=== PATIENT | male | born 1950 | race Two or more races ===

== ENCOUNTER 2016-06-09 12:20 | Day surgery (SDC) | payer BC ==
[2016-06-08 14:52] VITALS: BMI 24.9
[~2016-06-09] VITALS: Ht 167.6 cm; Wt 64.3 kg
[2016-06-09] VITALS (15 sets, daily range): BP systolic 107–141; BP diastolic 53–70; PULSE 18–69; RESP 15–18; Ht 167.6 cm; Wt 64.3 kg
[~2016-06-09 12:20] MED LIST: ASPI-664 PO; ATOR80TA75 PO; CEFAZOLIN 2 GM/50 ML (PMX) 50 ML IVPB ONE; CIPR500T4 PO; CLOP75TA27 PO; DILT180C94 PO; DUTA0.5C PO; METO25TA4 PO; METR500T14 PO; SOD CHLORIDE 0.9% 1,000 ML IV SCH
[2016-06-09] MEDS ORDERED: HYDR12.58 PO (12:47)
[2016-06-09] MEDS ORDERED: LOSA100T7 PO (12:48)
[2016-06-09] MEDS ORDERED: SOD CHLORIDE 0.9% 1,000 ML IV SCH (13:30)
[2016-06-09] MEDS ORDERED: CEFAZOLIN 2 GM/50 ML (PMX) 50 ML IVPB ONE (13:30)
[2016-06-09] MEDS ORDERED: FENTAnyl 50 MCG/ML VIAL ONE (14:19)
[2016-06-09] MEDS ORDERED: MIDAZOLAM 1 MG/ML 2 ML INJ ONE (14:19)
[2016-06-09] MEDS ORDERED: BUPIVACAINE 0.25% (MPF) 30 ML INJ ONE (14:20)
[2016-06-09] MEDS ORDERED: CEFAZOLIN 1 GM INJ ONE (14:30)
[2016-06-09] MEDS ORDERED: POLYMYXIN/BACITRACIN 1L IRRIG IRR ONE (14:45)
[2016-06-09] MEDS ORDERED: MEPERIDINE 25 MG INJ IV PRN (15:30)
[2016-06-09] MEDS ORDERED: ONDANSETRON 4 MG INJ IV PRN (15:30)
[2016-06-09] MEDS ORDERED: DIPHENHYDRAMINE 50 MG INJ IV PRN (15:30)
[2016-06-09] MEDS ORDERED: HYDROmorphONE (0.2 MG/ML) 10ML SYG IV PRN ×2 (15:30)
[2016-06-09] MEDS ORDERED: HYDROCODONE/APAP (5/325) TAB PO ONE (15:30)
[2016-06-09] MEDS ORDERED: EPHEDrine SULFATE 50 MG/5 ML SYG IV PRN (15:30)
--- NOTE | 2016-06-09 15:30 | OPR ---
DATE OF OPERATION: 06/09/2016 INDICATION: This is a 65-year-old male with a right inguinal hernia. He requests surgical repair. Risks, alternatives, benefits, and personnel were discussed with the patient. The patient expresse d understanding and consents to the operation. PREOPERATIVE DIAGNOSIS: Right inguinal hernia. POSTOPERATIVE DIAGNOSIS: Right inguinal hernia. OPERATION: Open right inguinal hernia repair with large Ultrapro hernia system mesh. SURGEON: Arleen Medeiros MD SPECIMENS: None. COMPLICATIONS: None. ANESTHESIA: Spinal. DESCRIPTION OF PROCEDURE: The patient was taken to the OR and prepped and draped in the usual steri le fashion. Surgical time out was performed. IV antibiotics were given. Right inguinal oblique in cision was made with a 10 blade. Dissection cautery was carried down to the external oblique fascia which was opened with a 15 blade. This incision is extended medial inferiorly and lateral superior ly with Metzenbaum scissors. Cord structures are encircled with a Shyann drain. There appears to be a large direct hernia which is reduced and subplanted with the disk portion of the Ultrapro herni a system mesh. This was secured in place with a running 0 Prolene from the pubic tubercle along the shelving edge of the inguinal ligament and superiorly to the internal oblique with interrupted 3-0 Vicryl. Onlay mesh was secured in a similar fashion with a running 0 Prolene from the pubic tubercl e along the shelving edge of the inguinal ligament. Straps are created to recreate the inguinal rin g with 0 Prolene. Onlay mesh was secured to the internal oblique with interrupted 3-0 Vicryl. Exte rnal oblique fascia was closed with a running 3-0 Vicryl. Jason's was closed with interrupted 3-0 Vicryl. Skin was closed using skin melanie. Local anesthesia was injected. Dry dressings were isaac lied. Dictated By: ARLEEN JOHNSON/HUBERT Conf#: [id number] DID#: [id number]
== END 2016-06-09 17:50 | disposition home or self-care (01) ==
LOC: SDS 12:20
PROVIDERS: ATTEND Surgery
DX: K40.90 Unilateral inguinal hernia, without obstruction or gangrene, not specified as recurrent (principal); I10 Essential (primary) hypertension; E78.5 Hyperlipidemia, unspecified
CPT/HCPCS: 49505; C1781; J0690; J2250; J3010; Z7512; Z7610

== ENCOUNTER 2016-07-28 13:07 | Day surgery (SDC) | payer BC ==
[~2016-07-28] VITALS: Ht 165.1 cm; Wt 63.5 kg
[~2016-07-28 13:07] MED LIST changes: -CEFAZOLIN 2 GM/50 ML (PMX) 50 ML IVPB ONE; -CIPR500T4 PO; -CLOP75TA27 PO; -DILT180C94 PO; +HYDR12.58 PO; +LOSA100T7 PO; -METR500T14 PO; -SOD CHLORIDE 0.9% 1,000 ML IV SCH
[2016-07-28 13:42] VITALS: Ht 165.1 cm; Wt 63.5 kg
[2016-07-28 14:09] VITALS: BP 134/76; PULSE 86; RESP 18
[2016-07-28 14:46] VITALS: BP 92/53; PULSE 80; RESP 12
[2016-07-28] MEDS ORDERED: MIDAZOLAM 1 MG/ML 2 ML INJ ONE ×2 (15:00)
[2016-07-28] MEDS ORDERED: FENTAnyl 50 MCG/ML VIAL ONE (15:01)
[2016-07-28 15:22] VITALS: BP 103/53; RESP 20
--- NOTE | 2016-07-28 16:26 | GILP ---
DATE OF PROCEDURE: 07/28/2016 PREOPERATIVE DIAGNOSIS: History of colitis. PROCEDURE DONE: Colonoscopy and biopsy removal of 2 polyps. POSTOPERATIVE DIAGNOSIS: 1. No colitis. 2. A 3 mm polyp at the hepatic flexure removed with cold biopsy forceps, a 2 mm polyp in the descen ding colon removed by cold biopsy forceps and diverticulosis in the left colon. DESCRIPTION OF PROCEDURE: The patient was put in left lateral decubitus after obtaining informed co nsent. He was sedated, monitored on oximetry, EKG, blood pressure. Three mg IV Versed given, and I gave 50 mcg of fentanyl, and again repeated 25 more mcg of fentanyl. Rectal exam done which was normal. Advanced a pediatric Olympus video colonoscope all the way to cecum. Ileocecal valve, appendiceal opening identified. Cecum, ascending colon examined and in the hepatic flexure, a 3 mm polyp noted. This was removed with biopsy forceps completely with multiple biopsies and sent to histopathology. Transverse colon, the rest of it was unremarkable and the misael cending colon, sigmoid colon, there were diverticulosis and a small 2 mm polyp in the descending col on noted. This was removed again with cold biopsy forceps technique. The rectum including retrofle xion unremarkable. Upon removal of scope, patient had no complication. Plan will be to await for b iopsy report and follow up in 2 weeks. He will resume his aspirin in 2 days and he will also have r epeat colonoscopy in 3 to 5 years. Dictated By: TITO RASMUSSEN/HUBERT Conf#: [id number] DID#: [id number] CC: Mono Colunga MD; TITO LINARES M.D.;*EndCC*
== END 2016-07-28 15:26 | disposition home or self-care (01) ==
LOC: GIL 13:07
PROVIDERS: ATTEND Internal Medicine
DX: D12.3 Benign neoplasm of transverse colon (principal); D12.4 Benign neoplasm of descending colon; K57.30 Diverticulosis of large intestine without perforation or abscess without bleeding; I10 Essential (primary) hypertension; I25.10 Atherosclerotic heart disease of native coronary artery without angina pectoris; Z95.5 Presence of coronary angioplasty implant and graft; Z79.02 Long term (current) use of antithrombotics/antiplatelets; Z82.49 Family history of ischemic heart disease and other diseases of the circulatory system
CPT/HCPCS: 45380; 88305; J2250; J3010; Z7610